=== PATIENT | male | born 1945 | race Caucasian/White ===

== ENCOUNTER 2018-03-24 03:24 | Inpatient (IN) | payer OTHER ==
[~2018-03-24] VITALS: Ht 175.3 cm; Wt 117.9 kg
[~2018-03-24 03:24] MED LIST: LIPITOR10 M1 PO; LISINOPRIL5 M1 PO; PROSCAR5 M1 PO; UROXATRAL10 M1 PO; VERAPAMIL ER240 M1 PO
--- NOTE | 2018-03-24 15:04 | Operative Report ---
Operative/Inv Procedure Report Surgery Date: 03/24/18 Name of Procedure: Left total knee replacement Pre-Operative Diagnosis: Primary left knee DJD Post-Operative Diagnosis: Same Estimated Blood Loss: 50ml to 100ml Surgeon/Heavy Equipment Operator: Sterling SHORE,Sawyer Staley Anesthesia: block Operative/Procedure Note Note: Description of Procedure: The patient was taken to the operating room and positively identified. After induction of spinal anesthesia and administration of appropriate pre-operative antibiotics, the patient was positioned supine on the operating room table and all bony prominences were well padded. A well-padded pneumatic tourniquet was placed on the left upper thigh. After performing a surgical timeout, the left lower extremity was prepped and draped in the usual sterile fashion. After exsanguination with Esmarch the tourniquet was inflated to 250mm of mercury. A standard medial parapatellar approach was made to the knee. This was carried down through skin and subcutaneous tissue to the level of the fascia. Meticulous hemostasis was maintained with Bovie electrocautery. The extensor mechanism and patellar retinaculum were opened sharply and the patella was everted. The infrapatellar fat was resected in order to improve exposure. Osteophytes were trimmed from the patella and femoral condyles and the patella was re-everted and tucked laterally. A medial release was performed and the cruciate ligaments were resected. The tibia was then subluxed anteriorly. Utilizing the appropriate extra-medullary guide, the proximal tibia was trimmed perpendicular to the long axis of the tibial shaft. Attention was then turned to the femur. After opening the medullary canal, the distal femoral cut was made in 6 degrees of valgus utilizing the appropriate intra-medullary guide. The extension gap was checked and found to be appropriate. The femur was then sized and the remainder of the femoral cuts were made with a size 5 4-in-1 femoral cutting guide. The flexion gap was checked and found to be symmetric and appropriate. The knee was then trialed with a size 5 femoral component, a size 5 tibial component and a size 13 mm TS polyethylene insert. The patella was trimmed to accept an A 35 patella. This yielded excellent range of motion, stability and patellar tracking. All trial components were removed and the knee was copiously irrigated with sterile saline. All components were cemented into place with Bambi Simplex cement. All the components were of the [place] [employer] knee system of the above stated sizes. The knee was again irrigated after cementation. The extensor mechanism and patellar retinaculum were repaired using interrupted #1 vicryl suture. The skin was re-approximated with 2-0 vicryl and closed with ad. A sterile dressing was applied, the tourniquet was deflated, the patient was awakened and taken to the recovery room in satisfactory condition.
--- NOTE | 2018-03-24 15:48 | Admission Core Measures ---
Acute Coronary Syndrome (CM) ACS Core Measures Acute Coronary Syndrome Diagnosis No Congestive Heart Failure (NEW) CHF Core Measures Congestive Heart Failure Diagnosis No Cerebrovascular Accident CVA Core Measures CVA/TIA Diagnosis No Venous Thromboembolism VTE Core Vinay (View Protocol) VTE Risk Factors Surgery No Mechanical VTE Prophylaxis d/t N/A MechProphylax Ordered No VTE Pharm Prophylaxis d/t NA PharmProphylax ordered Problem List As ranked by this Provider includes Assessment & Plan 1. Unilateral primary osteoarthritis, left knee HOME MEDS Home Med List Alfuzosin HCl (Uroxatral) 10 MG TAB.ER.24H 1 TAB PO DAILY BPH (Reported) Atorvastatin Calcium (Lipitor) 10 MG TABLET 1 TAB PO DAILY CHOLESTEROL ( Reported) Finasteride (Proscar) 5 MG TABLET 1 TAB PO DAILY BPH (Reported) Lisinopril 5 MG TABLET 1 TAB PO DAILY HTN (Reported) Verapamil HCl (Verapamil ER) 240 MG TABLET.ER 1 TAB PO DAILY HTN (Reported)
--- NOTE | 2018-03-24 15:56 | Patient Discharge Instructions ---
Discharge Instructions General Discharge Information You were seen/treated for: Left knee pain related to unilateral primary osteaorthritis You had these procedures: Left total knee replacement Watch for these problems: Increasing pain despite the use of pain medication Increasing redness, warmth or swelling Drainage of any type from incision Inability to bear weight on operative leg Persistent nausea and vomiting Fever greater than 101.5 degrees Do not soak the wound: Yes No bath, but you may shower: Yes Other wound care: Please keep wound clean and dry. No ointments or lotions of any type on or near incision at any time. No exceptions. Your dressing will be changed by your nurse on the second day after your surgery. Daily dry dressing changes are recommended each day thereafter. Do not soak your wound in a bath or pool at any time until otherwise indicated by your surgeon. You may shower, please dry wound immediately after shower with a clean towel. Special Instructions: Aspirin: You are taking this medication to help prevent blood clot formation. Please take with food to protect your stomach lining. Please take as directed. Constipation: Pain medication can cause constipation. Your surgeon has recommended that you take Colace and miralax each day. You may discontinue this medication if you develop loose stool or diarrhea. If you wish to continue this medication, it is available over the counter. If you are unable to move your bowels after several days, if you are unable to pass gas and are developing bloating, nausea, or vomiting as a result, please contact your doctor. Diet Continue normal diet: Yes Activity Full Activity/No Limits: No Activity Self Limited: Yes Pounds, do NOT lift more than: 10 Acute Coronary Syndrome Inclusion Criteria At DC or during hospital stay patient has or had the following: ACS DIAGNOSIS No Discharge Core Measures Meds if any: Prescribed or Continued at Discharge Meds if any: NOT Prescribed or Continued at Discharge Congestive Heart Failure Inclusion Criteria At DC or during hospital stay patient has or had the following: CHF DIAGNOSIS No Discharge Core Measures Meds if any: Prescribed or Continued at Discharge Meds if any: NOT Prescribed or Continued at Discharge Cerebrovascular accident Inclusion Criteria At DC or during hospital stay patient has or had the following: CVA/TIA Diagnosis No Discharge Core Measures Meds if any: Prescribed or Continued at Discharge Meds if any: NOT Prescribed or Continued at Discharge Venous thromboembolism Inclusion Criteria VTE Diagnosis No VTE Type NONE VTE Confirmed by (Test) NONE Discharge Core Measures - Per Current guidelines, there needs to be overlap - treatment for the first 5 days of Warfarin therapy. - If discharged on Warfarin prior to 5 days of - overlap therapy, the patient will need to be - assessed for post discharge needs including - *Post discharge parental anticoagulation - *Warfarin and/or parental anticoagulation education - *Follow up date to check INR post discharge At least 5 days overlap therapy as Inpatient No Meds if any: Prescribed or Continued at Discharge Note: Overlap Therapy is Warfarin and Anticoagulant Meds if any: NOT Prescribed or Continued at Discharge
[2018-03-24] MEDS ORDERED: MIRALAX17 G1 PO (15:57)
[2018-03-24] MEDS ORDERED: ASPIRIN EC325 M2 PO (15:57)
[2018-03-24] MEDS ORDERED: PRILOSEC OTC20 M1 PO (15:57)
[2018-03-24] MEDS ORDERED: COLACE100 M1 PO (15:57)
[2018-03-24] MEDS ORDERED: DILAUDID2 M1 PO (15:57)
--- NOTE | 2018-03-24 15:59 | Surgical Discharge Summary ---
Visit Information Visit Dates Admission Date: 03/24/18 Discharge Date: 03/26/18 History of Present Illness Chief Complaint: Left knee pain related to unilateral primary osteoarthritis Surgical History Pertinent Surgical History: non-contributory Review of Systems: See H&P Hospital Course Course Attending Physician: Sawyer Katz MD Primary Care Physician: Efraín Miller MD Hospital Course: Patient was admitted to the hospital for an elective total joint replacement. The procedure was tolerated well and patient was transferred to a general surgical floor. Diet was advanced and tolerated. The patient was evaluated and treated by physical therapy. At the time of hospital discharge, the vital signs were stable, neurovascular status was intact, and pain was controlled with the use of oral pain medications. Allergies: Coded Allergies: Sulfa (Sulfonamide Antibiotics) (rash 03/21/18) Disposition Summary Disposition Principal Diagnosis: Left knee unialteral primary osteoarthritis Additional Diagnosis: None Discharge Disposition: home health services Discharge Instructions General Discharge Information Code Status: Full Code Patient's Diet: Regular, advance as tolerated Patient's Activity: WBAT Follow-Up Instructions/Appts: Follow up with Dr. Katz in 6 weeks from date of surgery. Please call office to arrange &/or confirm this appointment. Medications at Discharge Discharge Medications: Continue taking these medications: Atorvastatin Calcium (Lipitor) 10 MG TABLET 1 Tablet ORAL DAILY Lisinopril (Lisinopril) 5 MG TABLET 1 Tablet ORAL DAILY Verapamil HCl (Verapamil ER) 240 MG TABLET.ER 1 Tablet ORAL DAILY Alfuzosin HCl (Uroxatral) 10 MG TAB.ER.24H 1 Tablet ORAL DAILY Finasteride (Proscar) 5 MG TABLET 1 Tablet ORAL DAILY Start taking the following new medications: Aspirin (Ecotrin*) 325 MG TABLET.DR 1 Tablet ORAL TWICE DAILY Qty = 60 No Refills Docusate Sodium (Colace) 100 MG CAPSULE 1 Capsule ORAL TWICE DAILY Qty = 14 No Refills Instructions: DISCONTINUE USE IF YOU DEVELOP LOOSE STOOL OR DIARRHEA Polyethylene Glycol 3350 (Miralax) 17 GRAM POWD.PACK 1 Packet ORAL DAILY Qty = 7 No Refills Instructions: dissolve in water, DISCONTINUE USE IF YOU DEVELOP LOOSE STOOL OR DIARRHEA Hydromorphone HCl (Dilaudid) 2 MG TABLET 1-2 Tablet ORAL EVERY 4-6 HOURS NEEDED as needed for PAIN Qty = 36 No Refills Omeprazole Magnesium (Prilosec Otc) 20 MG TABLET.DR 1 Tablet ORAL DAILY Qty = 30 No Refills
[2018-03-24 17:24] VITALS: BP 138/80
--- NOTE | 2018-03-24 17:56 | PN- Orthopedic ---
Subjective Subjective: patient feels well without complaints pain controlled Objective Vital Signs and I&Os Vital Signs Date Time Temp Pulse Resp B/P B/P Pulse O2 O2 Flow FiO2 Mean Ox Delivery Rate 03/24 1724 93.8 68 18 138/80 95 Room Air Physical Exam: alert and oriented family present -all questions answered chest- CTA symmetric Heart - RRR without MRG Abdomen - rounded, no distention, nontender left knee- dressings CDI, sensory-motor returned feet warm with good perfusion Current Medications: Current Medications Sig/Helder Start time Last Medication Dose Route Stop Time Status Admin Acetaminophen 1,000 MG Q6 03/24 1800 AC 03/24 IV 03/25 1201 1753 Acetaminophen 0 .STK-MED ONE 03/24 1229 DC PO Acetaminophen 975 MG ONCE 03/24 0000 DC PO 03/24 235 Aspirin 325 MG BID 03/24 2100 AC PO Atorvastatin Calcium 10 MG DAILY 03/25 09 AC PO Cefazolin Sodium 2 GM IQ8 03/24 1600 AC N/A 1 UNIT IV 03/25 0029 Cefazolin Sodium 2,000 MG ONCE 03/24 0000 DC IV 03/24 2359 Dextrose/Sodium 1,000 ML .[id number] 03/24 1700 AC 03/24 Chloride IV 1739 Docusate Sodium 100 MG BID 03/24 2100 AC PO Finasteride 5 MG DAILY 03/25 0900 AC PO Hydromorphone HCl 2 MG Q4P PRN 03/24 1700 AC PO Hydromorphone HCl 4 MG Q4P PRN 03/24 1700 AC PO Lisinopril 5 MG DAILY 03/25 09 AC PO Midazolam HCl 0 .STK-MED ONE 03/24 0745 DC .ROUTE Morphine Sulfate 2 MG Q2P PRN 03/24 1700 AC IV Morphine Sulfate 0 .STK-MED ONE 03/24 0745 DC .ROUTE Omeprazole 40 MG DAILY AC 03/25 0700 AC PO Ondansetron HCl 4 MG Q6P PRN 03/24 1700 AC 03/24 IV 1730 Oxycodone HCl 0 .STK-MED ONE 03/24 1229 DC PO Oxycodone HCl 10 MG ONCE 03/24 0000 DC PO 03/24 2359 Polyethylene Glycol 17 GM DAILY 03/24 1546 AC PO Promethazine HCl 12.5 MG Q6P PRN 03/24 1700 AC IV 03/31 1544 Tranexamic Acid 0 .STK-MED ONE 03/24 0745 DC IV Verapamil HCl 240 MG DAILY 03/25 0900 AC PO Assessment/Plan Assessment/Plan 72 y/o male postop left TKA DVT proph -ASA advance diet PT to see -WBAT plan to D/C home tomorrow if passes PT Core Measures Venous Thromboembolism VTE Risk Factors Surgery No Mechanical VTE Prophylaxis d/t N/A MechProphylax Ordered No VTE Pharm Prophylaxis d/t NA PharmProphylax ordered
[2018-03-24 19:36] VITALS: BP 144/72
[2018-03-24 21:40] VITALS: BP 120/76
[2018-03-24 23:46] VITALS: BP 120/60
[2018-03-25 06:53] VITALS: BP 120/62
[2018-03-25 08:27] LABS: ABSOLUTE BASOPHIL COUNT 0 /CUMM (0.0-0.2); ABSOLUTE EOSINOPHIL COUNT 0 /CUMM (0.0-0.7); ABSOLUTE GRANULOCYTE CT 7.8 /CUMM (1.4-6.5); ABSOLUTE MONOCYTE COUNT 0.8 /CUMM (0.10-0.60); BASOPHIL % 0.2 % (0.0-2.0); EOSINOPHIL % 0 % (0-5); GRANULOCYTE % 81.3 % (42.2-75.2); HEMATOCRIT 36.4 % (42-52); MEAN CORPUSCULAR HGB 31.5 PG (27.0-31.0); MEAN CORPUSCULAR VOLUME 92.5 FL (80.0-94.0); MEAN PLATELET VOLUME 8.3 FL (7.4-10.4); PLATELET COUNT 177 /CUMM (130-400); RBC DISTRIBUTION WIDTH 13.4 % (11.5-14.5); RED BLOOD CELL CT 3.94 /CUMM (4.70-6.10); WHITE BLOOD CELL COUNT 9.6 /CUMM (4.8-10.8)
--- NOTE | 2018-03-25 08:46 | PN- Orthopedic ---
Subjective Subjective: Overnight difficulty voiding, known bph, pt feels likely related to bph meds. Had nausea post op day 0, states he doesnt tolerate dilaudid. Nausea has resolved. Denies chest pain, shortness of breath. Pain is tolerable, has ambulated. Will work with PT to do stairs later today. Anticipates dc to home with hhs in 1-2 days. Objective Vital Signs and I&Os Vital Signs Date Time Temp Pulse Resp B/P B/P Pulse O2 O2 Flow FiO2 Mean Ox Delivery Rate 03/25 0806 98.4 72 20 120/62 03/25 0653 98.4 72 20 120/62 90 03/25 0000 Nasal 2.0L Cannula 03/24 2346 97.5 88 20 120/60 98 03/24 2140 97.4 80 20 120/76 97 Nasal 2.5L Cannula 03/24 2022 82 144/72 03/24 1936 95.8 82 20 144/72 96 Nasal 2.0L Cannula 03/24 1724 93.8 68 18 138/80 95 Room Air Intake & Output 03/25 1600 03/25 0800 03/25 0000 03/24 1600 03/24 0800 03/24 0000 Intake Total 840 3190 Output Total 750 Balance 90 3190 Intake, IV 600 2470 Intake, Oral 240 720 Number 0 Bowel Movements Output, Urine 750 Patient 260 lb Weight Physical Exam: General: Alert and oriented x3, no acute distress Cardiac: RRR, s1s2 Pulm: CTA bilaterally, non-labored respiratory effort, on room air. Abd: Soft, non-tender, non-distended Extremities: Moves all extremities, neurovascular status grossly intact. Bilateral calves soft and non-tender. Surgical site: Left knee, dressing dry and intact. Assessment/Plan Assessment/Plan This is a 72 year old male, POD 1, s/p L TKR. PMH sig for htn, bph, hld. -DC iv fluids, tolerating adequate po -OOB, WBAT -DC dilaudid, change to percocet -Patient to bring home uroxitral, will bring to pharmacy for approval -Continue diet as tolerated -Continue bowel regimen -Continue asa 325 bid for dvt ppx -Ancef dosage complete for abx ppx -Anticipate dc to home with hhs in 1-2 days, pending pt clearance on stairs Will discuss plan of care with Dr. Katz Core Measures Venous Thromboembolism VTE Risk Factors Surgery No Mechanical VTE Prophylaxis d/t N/A MechProphylax Ordered No VTE Pharm Prophylaxis d/t NA PharmProphylax ordered
[2018-03-25 10:44] VITALS: BP 110/68
[2018-03-25 13:48] VITALS: BP 112/60
[2018-03-25 17:30] VITALS: BP 110/50
[2018-03-25 21:30] VITALS: BP 120/50
[2018-03-26 06:29] VITALS: BP 122/60
--- NOTE | 2018-03-26 06:45 | PN- Orthopedic ---
Subjective Subjective: pod#2 s/p left tka no major issues overnight no cmplaints now cleared pt for home d/c/ tolerating diet Objective Vital Signs and I&Os Vital Signs Date Time Temp Pulse Resp B/P B/P Pulse O2 O2 Flow FiO2 Mean Ox Delivery Rate / 0629 98.8 90 20 122/60 94 Nasal Cannula / 2130 98.7 86 20 120/50 92 Room Air 03/25 1730 98.7 80 20 110/50 93 Room Air 03/25 1348 98.7 71 20 112/60 94 Nasal 2.0L Cannula / 1044 98.8 67 20 110/68 95 Room Air 03/25 0806 98.4 72 20 120/62 03/25 0653 98.4 72 20 120/62 90 Intake & Output 03/26 0800 03/26 0000 03/25 1600 03/25 0800 03/25 0000 03/24 1600 Intake Total 610 250 872 885 5937 Output Total 2 300 750 Balance 610 248 682 70 6599 Intake, IV 10 10 960 757 4152 Intake, Oral 600 240 800 240 720 Number 1 0 Bowel Movements Output, Stool 2 Output, Urine 300 750 Patient 260 lb Weight Physical Exam: cv: rrr lungs: clear abd: soft, +bs ext: drsg changed, wound c/d/i no calf tenderness distal cms intact Assessment/Plan Assessment/Plan ortho stable plan home d/c later today Core Measures Venous Thromboembolism VTE Risk Factors Surgery No Mechanical VTE Prophylaxis d/t N/A MechProphylax Ordered No VTE Pharm Prophylaxis d/t NA PharmProphylax ordered
--- NOTE | 2018-03-26 07:00 | PN- Student ---
Subjective Subjective: Pt complains of 7/10 sharp pain in L knee and pain "like an icepick" in L quadriceps, which is better since last night but is still bothering him. Pain alleviated by ketorolac and acetaminophen. Pt also has chronic back pain which is acutely worse and is requesting access to home muscle relaxant (he states it' s methocarbamol). Denies all other ROS. Tolerating PO diet. Urinating independently. Passed stool yesterday. Able to walk; had PT on stairs yesterday. Pt states he would like to go home today. Objective Objective: Vitals: normal and stable I/O: normal Exam: General: resting comfortably in bed in NAD Lungs: CTA BL Cardiac: RRR, no M, R, G Abdomen: + BS, soft, non-distended, non-tender Extremities: No gross swelling in knees BL. DP/PT pulses 2+ BL, no edema. Incision: L knee dressing clean, dry, and intact. Incision well-approximated by ad. No erythema, bleeding, pain, swelling, or discharge. Labs: No new labs Imaging: No new imaging Assessment/Plan Assessment: Pt is a 72 y/o M w/ PMH of HTN and HLD currently on POD#2 s/p L TKR. Pt is stable. Neuro: pain under control with toradol, acetaminophen, and ice Lungs: 94% O2 on nasal cannula GI: normal diet : urinating independently Heme: DVT prophylaxis with AICDs Wound: remove dressing in 1-2 days or replace as needed Dispo/other: Encourage ambulation and PT Discharge home F/u outpatient
[2018-03-26 08:33] VITALS: BP 122/60
[2018-03-26] MEDS ORDERED: PERCOCET 5-3251 EACH PO (11:10)
== END 2018-03-26 11:36 | disposition home health service (06) | DRG 470 ==
LOC: SDA 03:24 → ENRESERV 15:04 → ENTRNSPT 16:00 → EDTRNSPT 16:22 → EDTRNSPTSTS 16:22 → 2NA 16:33 → CMPTRNSPT 16:41 → ENPENDDIS 03-26 07:56 → ENTRNSPT 03-26 11:27 → EDTRNSPTSTS 03-26 11:29 → EDTRNSPT 03-26 11:32 → 2NA 03-26 11:36 → CMPTRNSPT 03-26 11:37
PROVIDERS: Nurse Practitioner
PROC: 3E0T3BZ Introduction of Anesthetic Agent into Peripheral Nerves and Plexi, Percutaneous Approach (ICD-10-PCS; principal; 2018-03-24)
PROC: 0SRD0J9 Replacement of Left Knee Joint with Synthetic Substitute, Cemented, Open Approach (ICD-10-PCS; principal; 2018-03-24)
DX: M17.12 Unilateral primary osteoarthritis, left knee (principal); I10 Essential (primary) hypertension; E78.5 Hyperlipidemia, unspecified; N40.0 Benign prostatic hyperplasia without lower urinary tract symptoms; Z96.651 Presence of right artificial knee joint; Z98.1 Arthrodesis status; Z88.2 Allergy status to sulfonamides
CPT/HCPCS: 2NAP; 36592; 82436; 97110-GO; 97116-GO; 97161-GP; 97530-GO; C1713; C9290; J0131; J0690; J2405; J2550; J7042